=== PATIENT | male | born 1945 | race Caucasian/White ===

== ENCOUNTER → 2022-09-18 14:21 | Outpatient (BNVA) | payer OTHER, SELFPAY | PROVIDERS: Referring Provider Emergency Medicine Emergency Medical Services; Visit Provider Dermatology | DX: L30.9 Dermatitis, unspecified (principal); L85.3 Xerosis cutis; L57.8 Other skin changes due to chronic exposure to nonionizing radiation; B35.3 Tinea pedis | CPT/HCPCS: 11102; 99203 ==

== ENCOUNTER → 2022-10-16 10:54 | Outpatient (BNVA) | payer OTHER, SELFPAY | PROVIDERS: PCP Emergency Medicine Emergency Medical Services; Referring Provider Emergency Medicine Emergency Medical Services; Visit Provider Internal Medicine Cardiovascular Disease | DX: R07.9 Chest pain, unspecified (principal); I10 Essential (primary) hypertension; E78.5 Hyperlipidemia, unspecified; I45.10 Unspecified right bundle-branch block; Z01.818 Encounter for other preprocedural examination | CPT/HCPCS: 93005; 99203 ==

== ENCOUNTER → 2022-11-27 13:32 | Outpatient (BNVA) | payer OTHER, SELFPAY | PROVIDERS: PCP Emergency Medicine Emergency Medical Services; Visit Provider Dermatology | DX: B35.3 Tinea pedis (principal); L57.8 Other skin changes due to chronic exposure to nonionizing radiation | CPT/HCPCS: 99213 ==

== ENCOUNTER → 2023-05-06 13:55 | Outpatient (BNVA) | payer OTHER, SELFPAY | PROVIDERS: PCP Emergency Medicine Emergency Medical Services; Referring Provider Emergency Medicine Emergency Medical Services; Visit Provider Specialist | DX: M25.562 Pain in left knee (principal) | CPT/HCPCS: 73560; 73565; 99204 ==

== ENCOUNTER 2023-06-01 13:14 | Outpatient (CLI) | payer OTHER, SELFPAY ==
--- NOTE | 2023-06-01 13:45 | MR_ITS ---
WS: [id number] MRI LEFT KNEE NONCONTRAST TECHNIQUE: Axial PD, coronal PD fat sat, coronal PD, sagittal PD, and sagittal PD fat-sat images obta ined. CLINICAL INFORMATION: left knee injury COMPARISON: None. FINDINGS: Normal ACL. Distal quadriceps and patella tendons are intact. Hypertrophic patella. Tiny suprapatella r effusion. 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 Ganglion cyst along the dorsal PCL fibers measuring 1.5 x 1.2 cm. Mild chondromalacia patella. Chroni c thinning of the medial and lateral meniscus. Chronic intrasubstance signal abnormality posterior ho rn medial meniscus with chronic tear. Peripheral extrusion of the medial meniscus. Medial and lateral collateral ligaments appear intact. Normal popliteus. Mild chondromalacia patella. Medial and latera l patellar retinaculum appear intact. Tiny popliteal cyst. IMPRESSION: 1. Normal ACL. 2. 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 Anterior and posterior fibers appear intact. 3. Associated ganglion cyst along the dorsal PCL fibers measuring 1.5 x 1.2 cm. 4. Moderate chondromalacia patella. 5. Chronic thinning of the medial and lateral meniscus. Chronic tear posterior horn medial meniscus with peripheral extrusion. Outbridge grading: grade III: partial-thickness cartilage loss with focal ulceration
== END 2023-06-01 13:15 | disposition home or self-care (01) ==
PROVIDERS: PCP Emergency Medicine Emergency Medical Services; Visit Provider Specialist
DX: S89.92XA Unspecified injury of left lower leg, initial encounter (principal); M25.569 Pain in unspecified knee; M67.462 Ganglion, left knee; M22.42 Chondromalacia patellae, left knee; M23.222 Derangement of posterior horn of medial meniscus due to old tear or injury, left knee
CPT/HCPCS: 73721

== ENCOUNTER → 2023-06-03 13:20 | Outpatient (BNVA) | payer OTHER, SELFPAY | PROVIDERS: PCP Emergency Medicine Emergency Medical Services; Visit Provider Specialist | DX: M17.12 Unilateral primary osteoarthritis, left knee (principal) | CPT/HCPCS: 20610; 99214; J1100; J2795; J3301 ==

== ENCOUNTER → 2023-08-31 13:53 | Outpatient (BNVA) | payer OTHER, SELFPAY | PROVIDERS: PCP Emergency Medicine Emergency Medical Services; Visit Provider Specialist | DX: M17.12 Unilateral primary osteoarthritis, left knee (principal) | CPT/HCPCS: 20610; J1100; J2795; J3301 ==

== ENCOUNTER → 2023-11-30 13:09 | Outpatient (BNVA) | payer OTHER, SELFPAY | PROVIDERS: PCP Emergency Medicine Emergency Medical Services; Visit Provider Nurse Practitioner Family | DX: B35.3 Tinea pedis (principal); L57.8 Other skin changes due to chronic exposure to nonionizing radiation; D22.39 Melanocytic nevi of other parts of face; L81.4 Other melanin hyperpigmentation; L82.1 Other seborrheic keratosis | CPT/HCPCS: 99213 ==

== ENCOUNTER → 2023-12-04 08:16 | Outpatient (BNVA) | payer OTHER, SELFPAY | PROVIDERS: PCP Emergency Medicine Emergency Medical Services; Visit Provider Specialist | DX: M17.12 Unilateral primary osteoarthritis, left knee (principal) | CPT/HCPCS: 20610; J1100; J2795; J3301 ==

== ENCOUNTER → 2024-02-26 10:17 | Outpatient (BNVA) | payer OTHER, SELFPAY | PROVIDERS: PCP Emergency Medicine Emergency Medical Services; Visit Provider Specialist | DX: M25.512 Pain in left shoulder (principal); M17.12 Unilateral primary osteoarthritis, left knee; Z71.89 Other specified counseling | CPT/HCPCS: 20610; J1100; J2795; J3301 ==

== ENCOUNTER → 2024-06-03 08:18 | Outpatient (BNVA) | payer OTHER, SELFPAY | PROVIDERS: PCP Emergency Medicine Emergency Medical Services; Visit Provider Specialist | DX: M17.12 Unilateral primary osteoarthritis, left knee (principal) | CPT/HCPCS: 20610; J1100; J2795; J3301; J9999 ==

== ENCOUNTER → 2024-09-16 08:45 | Outpatient (BNVA) | payer OTHER, SELFPAY | PROVIDERS: PCP Emergency Medicine Emergency Medical Services; Visit Provider Specialist | DX: M17.12 Unilateral primary osteoarthritis, left knee (principal) | CPT/HCPCS: 20610; J1100; J2795; J3301; J9999 ==

== ENCOUNTER 2024-10-24 07:51 | Outpatient (CLI) | payer OTHER, SELFPAY ==
--- NOTE | 2024-10-24 07:57 | MR_ITS ---
WS: [id number] MRI LUMBAR SPINE NONCONTRAST TECHNIQUE: Sagittal T1, T2 and STIR imaging. Axial T1 and T2 imaging. CLINICAL INFORMATION: L LEG PAIN COMPARISON: None. FINDINGS: Mild lumbar curve. No acute compression. Slight anterolisthesis L5 on S1. L1-L2: Moderate facet arthropathy. Spinal canal and foramen are patent. L2-L3: No significant disc bulging. Moderate facet arthropathy. Spinal canal and foramen are patent. L3-L4: Mild annular bulging. Mild to moderate central canal stenosis with facet arthropathy and ligamentum flavum hypertrophy. Mild bilateral foraminal narrowing. Moderate facet arthropathy. L4-L5: Mild annular bulging. Moderate central canal stenosis. Moderate facet arthropathy. Mild to moderate RIGHT foraminal narrowing. Impingement the RIGHT subarticular recess and traversing RIGHT L5 nerve root. L5-S1: Central and RIGHT paracentral disc protrusion impinges the traversing RIGHT S1 nerve root in the subarticular recess. Mild bilateral foraminal narrowing. Mild facet arthropathy. Visualized pelvic bony structures: Normal. Paravertebral soft tissues: Normal. 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 MR/MR lumbar spine wo con* [id number] IMPRESSION: 1. Mild to moderate central canal stenosis L3-4 and moderate L4-5 with impinge ment RIGHT L4-5 subarticular recess. 2. Mild to moderate RIGHT L4-5 foraminal narrowing. 3. Mild bilateral L3-4 foraminal narrowing. 4. RIGHT paracentral disc protrusion L5-S1 impinges the traversing RIGHT S1 ne rve root. Mild RIGHT L5-S1 foraminal narrowing. 5. 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 This can be followed up with CTA.
== END 2024-10-24 07:52 | disposition home or self-care (01) ==
LOC: RAD 07:52
PROVIDERS: PCP Orthopaedic Surgery; Visit Provider Orthopaedic Surgery
DX: M47.816 Spondylosis without myelopathy or radiculopathy, lumbar region (principal); M51.26 Other intervertebral disc displacement, lumbar region; M48.061 Spinal stenosis, lumbar region without neurogenic claudication; M48.07 Spinal stenosis, lumbosacral region
CPT/HCPCS: 72148

== ENCOUNTER → 2025-01-05 10:52 | Outpatient (BNVA) | payer OTHER, SELFPAY | PROVIDERS: PCP Orthopaedic Surgery; Visit Provider Nurse Practitioner Family | DX: L57.8 Other skin changes due to chronic exposure to nonionizing radiation (principal); D22.39 Melanocytic nevi of other parts of face; L81.4 Other melanin hyperpigmentation; L82.1 Other seborrheic keratosis; L72.0 Epidermal cyst | CPT/HCPCS: 99213 ==